=== PATIENT | male | born 1950 | race Caucasian/White ===

== ENCOUNTER → 2016-03-01 | Outpatient (REF) | payer BC ==
[2016-03-01 13:21] LABS: MEAN CORPUSCULAR HEMOGLOBIN 32.4 pg (27.0-33.0); MEAN CORPUSCULAR HGB CONC 32.2 g/dl (32.0-36.5); MEAN CORPUSCULAR VOLUME 100.6 fl (80.0-96.0); RED CELL DISTRIBUTION WIDTH 12.5 % (11.5-14.5); WHITE BLOOD COUNT 6.8 K/mm3 (4.0-10.0)
[2016-03-01 14:07] LABS: ALBUMIN/GLOBULIN RATIO 1.14 (1.00-1.93); ALKALINE PHOSPHATASE 78 U/L (45-117); ALT/SGPT 49 U/L (12-78); ANION GAP 5 MEQ/L (8-16); AST/SGOT 30 U/L (15-37); BILIRUBIN,TOTAL 0.4 MG/DL (0.2-1.0); BLOOD UREA NITROGEN 23 MG/DL (7-18); CARBON DIOXIDE LEVEL 30 MEQ/L (21-32); CHLORIDE LEVEL 106 MEQ/L (98-107); CHOLESTEROL LEVEL 169 MG/DL (<200); CREATININE FOR GFR 0.91 MG/DL (0.70-1.30); GLOMERULAR FILTRATION RATE > 60.0 (>49); GLUCOSE, FASTING 95 MG/DL (80-110); SODIUM LEVEL 141 MEQ/L (136-145); TOTAL PROTEIN 7.5 GM/DL (6.4-8.2); TRIGLYCERIDES LEVEL 114 MG/DL (<150)
[2016-03-01 14:08] LABS: POTASSIUM SERUM 5.2 MEQ/L (3.5-5.1)
== END | disposition home or self-care (01) ==
LOC: M LABDRWAD 12:44
PROVIDERS: ATTEND Family Medicine
DX: C61 Malignant neoplasm of prostate (principal); I10 Essential (primary) hypertension

== ENCOUNTER → 2016-11-14 | Outpatient (CLI) | payer BC, MEDICARE ==
--- NOTE | 2016-11-14 11:39 | REP ---
REASON: Hemoptysis. COMPARISON: 10/29/2010 COMPARISON: No priors. FINDINGS: The superior mediastinal structures are midline. The cardiac silhouette is unremarkable in size, shape, and position. The diaphragmatic surfaces of the lungs are regular, and the costophrenic angles are clear. The pulmonary saucedo are clear. The imaged osseous structures are intact. IMPRESSION: There is no acute cardiopulmonary disease. There has been no change from the prior exam, however, since the patient is experiencing hemoptysis, contrast enhanced CT examination of the chest is recommended. Signed by Bean Gregory DO 11/14/2016 09:49 A
== END ==
LOC: M ADAMS 08:36
PROVIDERS: ATTEND Physician Assistant Medical
DX: J20.9 Acute bronchitis, unspecified (principal); R04.2 Hemoptysis

== ENCOUNTER → 2017-10-24 | Outpatient (REF) | payer BC ==
[2017-10-24 14:50] LABS: BASO % 0.7 % (0.0-1.0); EOS # 0.2 10^3/uL (0.0-0.50); EOS % 3.7 % (0.0-3.0); HEMATOCRIT 44.1 % (42.0-52.0); HEMOGLOBIN 15.3 g/dl (13.5-17.5); IMMATURE GRANULOCYTE % 0.2 % (0-3.0); LYMPH # 2.1 10^3/uL (1.5-4.5); LYMPH % 39.5 % (24.0-44.0); MEAN CORPUSCULAR HEMOGLOBIN 33.9 pg (27.0-33.0); MEAN CORPUSCULAR HGB CONC 34.7 g/dl (32.0-36.5); MEAN CORPUSCULAR VOLUME 97.8 fl (80.0-96.0); MONO # 0.7 10^3/uL (0.0-0.8); MONO % 12.9 % (0.0-5.0); NEUTROPHILS # 2.3 10^3/uL (1.8-7.7); PLATELET COUNT, AUTOMATED 185 10^3/uL (150-450); RED BLOOD COUNT 4.51 10^6/uL (4.30-6.10); RED CELL DISTRIBUTION WIDTH 12.1 % (11.5-14.5); WHITE BLOOD COUNT 5.4 10^3/uL (4.0-10.0)
[2017-10-24 15:26] LABS: ALBUMIN/GLOBULIN RATIO 1.33 (1.00-1.93); ALKALINE PHOSPHATASE 64 U/L (45-117); ALT/SGPT 42 U/L (12-78); ANION GAP 11 MEQ/L (8-16); AST/SGOT 33 U/L (7-37); BILIRUBIN,TOTAL 0.5 MG/DL (0.2-1.0); BLOOD UREA NITROGEN 21 MG/DL (7-18); CARBON DIOXIDE LEVEL 25 MEQ/L (21-32); CHLORIDE LEVEL 104 MEQ/L (98-107); CHOLESTEROL LEVEL 152 MG/DL (<200); CHOLESTEROL RISK RATIO 2.235 (<5); CREATININE FOR GFR 0.73 MG/DL (0.70-1.30); GLOMERULAR FILTRATION RATE > 60.0 (>49); GLUCOSE, FASTING 96 MG/DL (70-100); HDL CHOLESTEROL 68 MG/DL (>40); LDL CHOLESTEROL 72 MG/DL (<100); NON-HDL-C 84 MG/DL; POTASSIUM SERUM 4.2 MEQ/L (3.5-5.1); PROSTATIC SPECIFIC AG MONITOR 0.02 NG/ML (< 4.0); SODIUM LEVEL 140 MEQ/L (136-145); TRIGLYCERIDES LEVEL 59 MG/DL (<150)
== END ==
LOC: M LABDRWAD 12:28
DX: C61 Malignant neoplasm of prostate (principal); I10 Essential (primary) hypertension
CPT/HCPCS: 80053

== ENCOUNTER 2018-06-17 19:31 | Emergency (ER) | payer BC, MEDICARE ==
[~2018-06-17] VITALS: Ht 188 cm; Wt 98.3 kg
[2018-06-17] MEDS ORDERED: METAL LOCK LOOP XX ONE (19:59)
[2018-06-17] MEDS ORDERED: BUPR300T34 PO (20:07)
[2018-06-17] MEDS ORDERED: LISI40TA PO (20:07)
[2018-06-17] MEDS ORDERED: ZOCO80TA PO (20:07)
[2018-06-17] MEDS ORDERED: OMEP40CA2 PO (20:07)
[2018-06-17] MEDS ORDERED: ASPI81CH33 PO (20:07)
[2018-06-17] MEDS ORDERED: AUGM875T28 PO (20:07)
[2018-06-17] MEDS ORDERED: TOPR50TA PO (20:07)
[2018-06-17 20:12] LABS: BASO % 0.5 % (0.0-1.0); EOS # 0.1 10^3/uL (0.0-0.50); EOS % 1.6 % (0.0-3.0); HEMATOCRIT 46.4 % (42.0-52.0); HEMOGLOBIN 16.1 g/dl (13.5-17.5); LYMPH # 3.2 10^3/uL (1.5-4.5); LYMPH % 38.7 % (24.0-44.0); MEAN CORPUSCULAR HEMOGLOBIN 34.3 pg (27.0-33.0); MEAN CORPUSCULAR HGB CONC 34.7 g/dl (32.0-36.5); MEAN CORPUSCULAR VOLUME 98.9 fl (80.0-96.0); MONO % 12.4 % (0.0-5.0); NEUTROPHILS # 3.9 10^3/uL (1.8-7.7); NEUTROPHILS % 46.3 % (36.0-66.0); PLATELET COUNT, AUTOMATED 174 10^3/uL (150-450); RED BLOOD COUNT 4.69 10^6/uL (4.30-6.10); WHITE BLOOD COUNT 8.3 10^3/uL (4.0-10.0)
[2018-06-17 20:41] LABS: BLOOD UREA NITROGEN 23 MG/DL (7-18); CALCIUM LEVEL 8.6 MG/DL (8.8-10.2); CARBON DIOXIDE LEVEL 26 MEQ/L (21-32); CHLORIDE LEVEL 104 MEQ/L (98-107); CPK CREATINE PHOSPHOKINASE 128 U/L (39-308); CREATININE FOR GFR 0.96 MG/DL (0.70-1.30); GLOMERULAR FILTRATION RATE > 60.0 (>49); GLUCOSE, FASTING 99 MG/DL (70-100); MB/CK RELATIVE INDEX 3.36 (< OR =4); NT-PRO BNP 20 PG/ML (<125); SODIUM LEVEL 139 MEQ/L (136-145); TROPONIN I < 0.02 NG/ML (< 0.10)
[2018-06-17] MEDS ORDERED: ISOVUE-370 76% 100ML VIAL (Q9967) As Ordered ONE (20:43)
[2018-06-17] MEDS ORDERED: IBUPROFEN 800 MG TAB PO ONE (20:45)
--- NOTE | 2018-06-17 21:12 | REPVR ---
EXAM: CT Cervical Spine Without Contrast EXAM DATE/TIME: 06/17/2018 8:14 PM CLINICAL HISTORY: 68 years old, male; Injury or trauma; Fall; Initial encounter; Blunt trauma TECHNIQUE: Imaging protocol: Axial computed tomography images of the cervical spine without contrast. Coronal and sagittal reformatted images were created and reviewed. Radiation optimization: All CT scans at this facility use at least one of these dose optimization techniques: automated exposure control; mA and/or kV adjustment per patient size (includes targeted exams where dose is matched to clinical indication); or iterative reconstruction. COMPARISON: No relevant prior studies available. FINDINGS: Vertebrae: There is no fracture. There is minimal C3-C4 anterolisthesis and C5-C6 retrolisthesis. Alignment is otherwise normal. Discs/Spinal canal/Neural foramina: There is mild spondylosis and disc bulges. No central spinal stenosis. There is severe left foraminal stenosis. At C3-C4. Soft tissues: Unremarkable. Lungs: Lung apices are normal. IMPRESSION: No fracture. Electronically signed by: Ward Martino On 06/17/2018 21:11:55 PM
--- NOTE | 2018-06-17 21:13 | REPVR ---
EXAM: CT Head Without Contrast EXAM DATE/TIME: 06/17/2018 8:14 PM CLINICAL HISTORY: 68 years old, male; Injury or trauma; Fall; Initial encounter; Concussion / head injury; Consciousness not specified TECHNIQUE: Imaging protocol: Axial computed tomography images of the head/brain without contrast. Radiation optimization: All CT scans at this facility use at least one of these dose optimization techniques: automated exposure control; mA and/or kV adjustment per patient size (includes targeted exams where dose is matched to clinical indication); or iterative reconstruction. COMPARISON: No relevant prior studies available. FINDINGS: Brain: There is no evidence of infarct, cherry-white matter differentiation is preserved. There is no hemorrhage or extra-axial collection. There is no mass. Ventricles: There is no hydrocephalus. Bones/joints: Unremarkable. No acute fracture. Sinuses: Visualized sinuses are unremarkable. No acute sinusitis. Mastoid air cells: Visualized mastoid air cells are unremarkable. No mastoid effusion. Soft tissues: Unremarkable. IMPRESSION: No intracranial injury or lesion. Electronically signed by: Ward Martino On 06/17/2018 21:13:13 PM
--- NOTE | 2018-06-17 21:18 | REPVR ---
EXAM: CT Angiography Chest With Contrast EXAM DATE/TIME: 06/17/2018 8:47 PM CLINICAL HISTORY: 68 years old, male; Signs and symptoms; Cough; Additional info: Syncope, cough TECHNIQUE: Imaging protocol: Axial computed tomographic angiography images of the chest with intravenous contrast using CT angiography protocol. Coronal and sagittal reformatted images were created and reviewed. 3D rendering: MIP reconstructed images were created and reviewed. Radiation optimization: All CT scans at this facility use at least one of these dose optimization techniques: automated exposure control; mA and/or kV adjustment per patient size (includes targeted exams where dose is matched to clinical indication); or iterative reconstruction. Contrast material: ISOVUE 370; Contrast volume: 75 ml; Contrast route: IV; COMPARISON: CR PORTABLE CHEST X-RAY 06/17/2018 8:07 PM FINDINGS: Pulmonary arteries: No pulmonary emboli. Aorta: No evidence of thoracic aortic aneurysm, dissection or vascular injury. Lungs: Normal. No consolidation. No masses. Pleural space: Normal. No pneumothorax. No pleural effusion. Heart: There are coronary artery calcifications. Lymph nodes: Unremarkable. No enlarged lymph nodes. Bones/joints: Unremarkable. No acute fracture. Soft tissues: Unremarkable. IMPRESSION: No acute findings. Electronically signed by: Ward Martino On 06/17/2018 21:18:13 PM
[2018-06-17] MEDS ORDERED: IBUP-359 PO (21:28)
[2018-06-17 21:33] VITALS: BP 127/64
--- NOTE | 2018-06-18 07:56 | ECGEPIP ---
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
--- NOTE | 2018-06-18 10:53 | REP ---
CHEST X-RAY: SINGLE AP VIEW. HISTORY: Chest pain. COMPARISON STUDY: November 14, 2016 FINDINGS: EKG monitoring electrodes overlie the chest. The lungs are well inflated and clear. The pleural angles are sharp. There are granulomatous lymph node calcifications in the AP window region of the mediastinum, unchanged. No mass or adenopathy is observed. Pulmonary vasculature is not increased. No significant bony abnormality. IMPRESSION: No active disease. Electronically Signed by Malvin Butterfield MD 06/18/2018 11:11 A
--- NOTE | 2018-06-18 10:54 | REP ---
RIGHT SHOULDER: THREE VIEWS. HISTORY: Right shoulder pain after a fall. FINDINGS: Three views of the right shoulder demonstrate normal alignment of the glenohumeral and acromioclavicular joints. There is glenohumeral and acromioclavicular joint osteoarthritic spurring. A bone island is seen in the proximal humerus and another in the distal clavicle. No humeral, scapular, or clavicular fracture is appreciated. IMPRESSION: Osteoarthritic changes. No fracture noted. Electronically Signed by Malvin Butterfield MD 06/18/2018 11:11 A
--- NOTE | 2018-06-18 10:55 | REP ---
RIGHT HUMERUS: TWO VIEWS. HISTORY: Right shoulder pain after a fall. FINDINGS: Two views of the glenohumeral and elbow joint, osteoarthritic spurring. AC joint spurring is seen. There is a small subcortical cyst in the humeral head along with a bone island. There is no evidence of fracture or subluxation. IMPRESSION: No traumatic abnormality noted. Osteoarthritic changes. Electronically Signed by Malvin Butterfield MD 06/18/2018 11:11 A
== END 2018-06-17 22:08 | disposition home or self-care (01) ==
LOC: M ED 19:31
DX: S40.011A Contusion of right shoulder, initial encounter (principal); F10.120 Alcohol abuse with intoxication, uncomplicated; R06.02 Shortness of breath; W19.XXXA Unspecified fall, initial encounter; Y92.89 Other specified places as the place of occurrence of the external cause; F17.210 Nicotine dependence, cigarettes, uncomplicated; Z79.899 Other long term (current) drug therapy; Z79.82 Long term (current) use of aspirin; Z79.2 Long term (current) use of antibiotics
CPT/HCPCS: 70450; 71045; 71275; 72125; 73030; 73060; 80048; 82550; 82553; 83880; 84484; 85025; 85379; 93005; 93041; 94760; 99285; G0480; Q9967

== ENCOUNTER → 2019-03-09 | Outpatient (REF) | payer MEDICARE ==
[~2019-03-09] MED LIST: ASPI81CH33 PO; AUGM875T28 PO; BUPR300T92 PO; IBUP-359 PO; LISI40TA PO; OMEP40CA97 PO; TOPR50TA PO; ZOCO80TA PO
[2019-03-09 13:23] LABS: HEMATOCRIT 50.2 % (42.0-52.0); HEMOGLOBIN 16.7 g/dl (13.5-17.5); MEAN CORPUSCULAR HEMOGLOBIN 33.5 pg (27.0-33.0); MEAN CORPUSCULAR HGB CONC 33.3 g/dl (32.0-36.5); MEAN CORPUSCULAR VOLUME 100.6 fl (80.0-96.0); PLATELET COUNT, AUTOMATED 211 10^3/uL (150-450); RED BLOOD COUNT 4.99 10^6/uL (4.30-6.10); WHITE BLOOD COUNT 9.3 10^3/uL (4.0-10.0)
[2019-03-09 13:58] LABS: ALBUMIN 3.8 GM/DL (3.2-5.2); ALT/SGPT 31 U/L (12-78); BILIRUBIN,TOTAL 0.5 MG/DL (0.2-1.0); BLOOD UREA NITROGEN 23 MG/DL (7-18); CARBON DIOXIDE LEVEL 27 MEQ/L (21-32); CHLORIDE LEVEL 107 MEQ/L (98-107); CHOLESTEROL LEVEL 173 MG/DL (<200); CHOLESTEROL RISK RATIO 3.604 (<5); CREATININE FOR GFR 0.88 MG/DL (0.70-1.30); GLOMERULAR FILTRATION RATE > 60.0 (>49); GLUCOSE, FASTING 102 MG/DL (70-100); HDL CHOLESTEROL 48 MG/DL (>40); LDL CHOLESTEROL 96 MG/DL (<100); NON-HDL-C 125 MG/DL; POTASSIUM SERUM 4.3 MEQ/L (3.5-5.1); PROSTATIC SPECIFIC AG MONITOR 0.03 NG/ML (< 4.00); SODIUM LEVEL 141 MEQ/L (136-145); TRIGLYCERIDES LEVEL 145 MG/DL (<150)
== END ==
LOC: M LABDRWAD 13:10
PROVIDERS: ATTEND Family Medicine
DX: C61 Malignant neoplasm of prostate (principal); I10 Essential (primary) hypertension

== ENCOUNTER → 2020-03-18 | Outpatient (REF) | payer MEDICARE ==
[~2020-03-18] MED LIST changes: -LISI40TA PO; +LISI40TA4 PO
[2020-03-18 14:16] LABS: ALBUMIN 3.9 GM/DL (3.2-5.2); ALT/SGPT 44 U/L (12-78); BILIRUBIN,TOTAL 0.8 MG/DL (0.2-1.0); BLOOD UREA NITROGEN 20 MG/DL (7-18); CARBON DIOXIDE LEVEL 27 MEQ/L (21-32); CHLORIDE LEVEL 104 MEQ/L (98-107); CHOLESTEROL LEVEL 181 MG/DL (<200); GLOMERULAR FILTRATION RATE > 60.0 (>42); GLUCOSE, FASTING 97 MG/DL (70-100); HDL CHOLESTEROL 52 MG/DL (>40); LDL CHOLESTEROL 101 MG/DL (<100); NON-HDL-C 129 MG/DL; POTASSIUM SERUM 4.9 MEQ/L (3.5-5.1); PROSTATIC SPECIFIC AG MONITOR 0.02 NG/ML (< 4.00); SODIUM LEVEL 140 MEQ/L (136-145); TOTAL PROTEIN 7.2 GM/DL (6.4-8.2); TRIGLYCERIDES LEVEL 140 MG/DL (<150)
[2020-03-18 15:16] LABS: HEMATOCRIT 47.3 % (42.0-52.0); HEMOGLOBIN 16.1 g/dl (13.5-17.5); MEAN CORPUSCULAR HEMOGLOBIN 33.8 pg (27.0-33.0); MEAN CORPUSCULAR VOLUME 99.4 fl (80.0-96.0); PLATELET COUNT, AUTOMATED 179 10^3/uL (150-450); RED BLOOD COUNT 4.76 10^6/uL (4.30-6.10); WHITE BLOOD COUNT 6.6 10^3/uL (4.0-10.0)
== END ==
LOC: M LABDRWAD 12:21
PROVIDERS: ATTEND Family Medicine
DX: C61 Malignant neoplasm of prostate (principal); I10 Essential (primary) hypertension

== ENCOUNTER 2020-07-08 09:12 | Emergency (ER) | payer MEDICARE ==
[~2020-07-08] VITALS: Ht 188 cm; Wt 105.8 kg
--- NOTE | 2020-07-08 10:07 | REP ---
INDICATION: fall , swelling, dried blood anterior scalp COMPARISON: 06/17/2018 TECHNIQUE: Axial noncontrast images from the skull base to the thoracic inlet with coronal reformations. This CT examination was performed using the following dose reduction techniques: Automated exposure control, adjustment of mA and/or kv according to the patient's size, and use of iterative reconstruction technique. FINDINGS: Atrophy with periventricular leukomalacia and microvascular ischemic changes are appreciated. The ventricles and sulci are symmetric. Perez-white differentiation is maintained. There is no evidence for acute intracranial hemorrhage, mass/mass effect, pathology or infarction. No extra-axial fluid collection. Calvarium is intact. Paranasal sinuses and mastoid air cells are clear. IMPRESSION: Atrophy and microvascular ischemic changes. No acute intracranial hemorrhage, infarction, or mass/mass effect. <Electronically signed by Tom Cabrera > 07/08/20 [id number]
--- NOTE | 2020-07-08 10:12 | REP ---
INDICATION: fall , vertebral tenderness, swenson ROM COMPARISON: None. TECHNIQUE: Axial noncontrast images from the skull base to the thoracic inlet with coronal and sagittal re-formations This CT examination was performed using the following dose reduction techniques: Automated exposure control, adjustment of mA and/or kv according to the patient's size, and use of iterative reconstruction technique. FINDINGS: There is a nondisplaced type 2 dens fracture. Straightening of normal lordosis, osteopenia, and moderate multilevel degenerative changes noted throughout the remainder of the cervical spine. IMPRESSION: Nondisplaced type 2 dens fracture. Findings require immediate attention and may represent unstable fracture. <Electronically signed by Tom Cabrera > 07/08/20 [id number]
[2020-07-08] MEDS ORDERED: lisinopriL 40 MG TAB PO ONE (10:15)
[2020-07-08] MEDS ORDERED: METOPROLOL SUCC (TopROL XL) 50MG **XL** TAB PO ONE (10:15)
[2020-07-08 10:25] VITALS: BP 224/100
[2020-07-08] MEDS ORDERED: NORCO, ANEXSIA 5/325MG TABLET (HYDROcodone/ACETAMINOPHEN) PO ONE (11:35)
[2020-07-08] MEDS ORDERED: MORPHINE 4 MG/ML 1ML VIAL/SYRINGE (J2270) IM ONE (12:10)
[2020-07-08 12:30] VITALS: BP 208/98
== END 2020-07-09 01:00 | disposition short-term general hospital (02) ==
LOC: M ED 09:12
DX: S12.112A Nondisplaced Type II dens fracture, initial encounter for closed fracture (principal); S00.01XA Abrasion of scalp, initial encounter; W01.198A Fall on same level from slipping, tripping and stumbling with subsequent striking against other object, initial encounter; Y92.098 Other place in other non-institutional residence as the place of occurrence of the external cause; Y93.89 Activity, other specified; Y99.8 Other external cause status; I10 Essential (primary) hypertension; E78.5 Hyperlipidemia, unspecified; K21.9 Gastro-esophageal reflux disease without esophagitis; J45.909 Unspecified asthma, uncomplicated; I25.10 Atherosclerotic heart disease of native coronary artery without angina pectoris; Z85.46 Personal history of malignant neoplasm of prostate; Z95.5 Presence of coronary angioplasty implant and graft; Z90.79 Acquired absence of other genital organ(s); Z79.899 Other long term (current) drug therapy; Z79.82 Long term (current) use of aspirin
CPT/HCPCS: 70450; 72125; 96372; 99284; J2270

== ENCOUNTER 2020-07-22 10:22 | Emergency (ER) | payer MEDICARE ==
[~2020-07-22] VITALS: Ht 188 cm; Wt 107.2 kg
[2020-07-22] MEDS ORDERED: FURO20TA2 (10:37)
[2020-07-22] MEDS ORDERED: ATEN50TA2 (10:37)
--- NOTE | 2020-07-22 11:24 | REP ---
INDICATION: DYSPNEA/COUGH. COMPARISON: 06/17/2018 FINDINGS: The technique utilized in obtaining the radiograph has magnified the cardiac silhouette and accentuated the interstitial markings. The superior mediastinal structures are midline. The cardiac silhouette is unremarkable in size, shape, and position. The diaphragmatic surfaces of the lungs are regular, and the costophrenic angles are clear. The pulmonary saucedo are clear. The imaged osseous structures are intact. IMPRESSION: There is no acute cardiopulmonary disease. <Electronically signed by Bean Gregory > 07/22/20 [id number]
[2020-07-22 11:42] LABS: BASO % 0.5 % (0.0-1.0); EOS # 0.1 10^3/uL (0.0-0.5); EOS % 1.6 % (0.0-3.0); HEMATOCRIT 43.5 % (42.0-52.0); HEMOGLOBIN 14.9 g/dl (13.5-17.5); LYMPH # 1.7 10^3/uL (1.5-5.0); LYMPH % 27.3 % (24.0-44.0); MEAN CORPUSCULAR HEMOGLOBIN 34.4 pg (27.0-33.0); MEAN CORPUSCULAR HGB CONC 34.3 g/dl (32.0-36.5); MEAN CORPUSCULAR VOLUME 100.5 fl (80.0-96.0); MONO # 0.8 10^3/uL (0.0-0.8); MONO % 12.2 % (2.0-8.0); NEUTROPHILS # 3.6 10^3/uL (1.5-8.5); NEUTROPHILS % 58.1 % (36.0-66.0); PLATELET COUNT, AUTOMATED 188 10^3/uL (150-450); RED BLOOD COUNT 4.33 10^6/uL (4.30-6.10); WHITE BLOOD COUNT 6.2 10^3/uL (4.0-10.0)
[2020-07-22 12:07] LABS: CK-MB VALUE MASS 3.9 NG/ML (<3.6); CPK CREATINE PHOSPHOKINASE 205 U/L (39-308); TROPONIN I < 0.02 NG/ML (< 0.10)
[2020-07-22 12:08] LABS: ALBUMIN 3.6 GM/DL (3.2-5.2); ALT/SGPT 36 U/L (12-78); BILIRUBIN,DIRECT 0.1 MG/DL (0.0-0.2); BILIRUBIN,TOTAL 0.3 MG/DL (0.2-1.0); BLOOD UREA NITROGEN 18 MG/DL (7-18); CALCIUM LEVEL 8.9 MG/DL (8.8-10.2); CARBON DIOXIDE LEVEL 31 MEQ/L (21-32); CHLORIDE LEVEL 105 MEQ/L (98-107); CREATININE FOR GFR 0.76 MG/DL (0.70-1.30); GLOMERULAR FILTRATION RATE > 60.0 (>42); GLUCOSE, FASTING 99 MG/DL (70-100); NT-PRO BNP 41 PG/ML (<125); POTASSIUM SERUM 4.6 MEQ/L (3.5-5.1); SODIUM LEVEL 138 MEQ/L (136-145); TOTAL PROTEIN 6.8 GM/DL (6.4-8.2)
[2020-07-22 13:08] LABS: FREE T4 0.93 NG/DL (0.76-1.46); THYROID STIMULATING HORMONE 0.582 uIU/ML (0.358-3.740)
--- NOTE | 2020-07-22 13:12 | REP ---
INDICATION: edema r/o DVT COMPARISON: None. TECHNIQUE: Real time compression and duplex Doppler interrogation of the bilateral lower extremity deep venous system is performed. Compression ultrasound is performed of the bilateral peroneal and posterior tibial veins. FINDINGS: Bilaterally, the common femoral, superficial femoral and popliteal veins are fully compressible with transducer pressure and demonstrate normal spontaneous and phasic flow, without evidence of deep venous thrombosis. No thrombus is seen in the bilateral visualized portions of the peroneal and posterior tibial veins. IMPRESSION: No evidence of deep venous thrombosis of the bilateral lower extremity femoral popliteal venous system. <Electronically signed by Alexx Perez > 07/22/20 [id number]
[2020-07-22 13:41] VITALS: O2SAT 97
[2020-07-22 13:43] VITALS: BP 172/88
--- NOTE | 2020-07-22 21:05 | ECGEPIP ---
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
== END 2020-07-22 14:08 | disposition home or self-care (01) ==
LOC: M ED 10:22
DX: R60.0 Localized edema (principal); I10 Essential (primary) hypertension; J45.909 Unspecified asthma, uncomplicated; K21.9 Gastro-esophageal reflux disease without esophagitis; S12.001D Unspecified nondisplaced fracture of first cervical vertebra, subsequent encounter for fracture with routine healing; S12.101D Unspecified nondisplaced fracture of second cervical vertebra, subsequent encounter for fracture with routine healing; X58.XXXD Exposure to other specified factors, subsequent encounter; Y92.89 Other specified places as the place of occurrence of the external cause; Z85.46 Personal history of malignant neoplasm of prostate; Z90.79 Acquired absence of other genital organ(s); Z95.5 Presence of coronary angioplasty implant and graft; Z79.899 Other long term (current) drug therapy; Z79.82 Long term (current) use of aspirin

== ENCOUNTER → 2020-08-06 | Outpatient (REF) | payer MEDICARE ==
[~2020-08-06] MED LIST changes: +ATEN50TA2; +FURO20TA2; +OMEP40CA4 PO; -OMEP40CA97 PO
[2020-08-06 13:57] LABS: BLOOD UREA NITROGEN 26 MG/DL (7-18); CALCIUM LEVEL 9.5 MG/DL (8.8-10.2); CARBON DIOXIDE LEVEL 30 MEQ/L (21-32); CHLORIDE LEVEL 102 MEQ/L (98-107); CREATININE FOR GFR 1.09 MG/DL (0.70-1.30); GLOMERULAR FILTRATION RATE > 60.0 (>42); GLUCOSE, FASTING 97 MG/DL (70-100); POTASSIUM SERUM 4.5 MEQ/L (3.5-5.1); SODIUM LEVEL 139 MEQ/L (136-145)
== END ==
LOC: M LABDRWAD 12:37
PROVIDERS: ATTEND Family Medicine
DX: R60.9 Edema, unspecified (principal)

== ENCOUNTER → 2020-08-25 | Outpatient (CLI) | payer MEDICARE ==
--- NOTE | 2020-08-25 13:35 | REPVR ---
PROCEDURE INFORMATION: Exam: CT Cervical Spine Without Contrast Exam date and time: 08/25/2020 1:04 PM Age: 70 years old Clinical indication: Condition or disease; Other: Nondisplaced type ii dens fracture; Additional info: Nondisplaced type ii dens fracture, subs for FX w TECHNIQUE: Imaging protocol: Computed tomography images of the cervical spine without contrast. Radiation optimization: All CT scans at this facility use at least one of these dose optimization techniques: automated exposure control; mA and/or kV adjustment per patient size (includes targeted exams where dose is matched to clinical indication); or iterative reconstruction. COMPARISON: CT Spine,cervical w/o contrast 07/08/2020 9:52 AM FINDINGS: Bones/joints: There is stable nondisplaced type 2 odontoid fracture. Fracture line remains unchanged and evident and there is no significant visible callus formation. Discs/Spinal canal/Neural foramina: Again seen are degenerative changes with multilevel neural foraminal narrowing greatest left C3-C4 where severe. There is stable grade 1 anterolisthesis of C3 on C4 and C4 on C5 and retrolisthesis of C5 on C6. Lungs: Lung apices are unremarkable for acute finding. Soft tissues: Unremarkable. IMPRESSION: Unchanged type 2 odontoid fracture with fracture line still evident. Electronically signed by: Dee Dee Cherry On 08/25/2020 13:35:14 PM
== END ==
LOC: M RAD 12:56
PROVIDERS: ATTEND Nurse Practitioner Family
DX: S12.112D Nondisplaced Type II dens fracture, subsequent encounter for fracture with routine healing (principal); W18.30XD Fall on same level, unspecified, subsequent encounter; Y92.009 Unspecified place in unspecified non-institutional (private) residence as the place of occurrence of the external cause

== ENCOUNTER → 2021-05-14 | Outpatient (REF) | payer MEDICARE ==
[2021-05-14 12:49] LABS: HEMATOCRIT 45.7 % (42.0-52.0); HEMOGLOBIN 16.4 g/dl (13.5-17.5); MEAN CORPUSCULAR HGB CONC 35.9 g/dl (32.0-36.5); MEAN CORPUSCULAR VOLUME 100.4 fl (80.0-96.0); PLATELET COUNT, AUTOMATED 160 10^3/uL (150-450); RED BLOOD COUNT 4.55 10^6/uL (4.30-6.10); WHITE BLOOD COUNT 6.7 10^3/uL (4.0-10.0)
[2021-05-14 13:27] LABS: ALBUMIN 3.9 GM/DL (3.2-5.2); ALT/SGPT 51 U/L (12-78); BILIRUBIN,TOTAL 0.6 MG/DL (0.2-1.0); BLOOD UREA NITROGEN 21 MG/DL (7-18); CALCIUM LEVEL 9.5 MG/DL (8.8-10.2); CARBON DIOXIDE LEVEL 31 MEQ/L (21-32); CHLORIDE LEVEL 106 MEQ/L (98-107); CHOLESTEROL LEVEL 177 MG/DL (<200); CHOLESTEROL RISK RATIO 4.022 (<5); CREATININE FOR GFR 0.95 MG/DL (0.70-1.30); GLOMERULAR FILTRATION RATE > 60.0 (>42); GLUCOSE, FASTING 99 MG/DL (70-100); HDL CHOLESTEROL 44 MG/DL (>40); LDL CHOLESTEROL 66 MG/DL (<100); NON-HDL-C 133 MG/DL; POTASSIUM SERUM 4.1 MEQ/L (3.5-5.1); PROSTATIC SPECIFIC AG MONITOR 0.01 NG/ML (< 4.00); SODIUM LEVEL 140 MEQ/L (136-145); TOTAL PROTEIN 7.3 GM/DL (6.4-8.2); TRIGLYCERIDES LEVEL 337 MG/DL (<150)
== END ==
LOC: M LABDRWAD 11:37
PROVIDERS: ATTEND Family Medicine
DX: C61 Malignant neoplasm of prostate (principal); I10 Essential (primary) hypertension

== ENCOUNTER → 2023-01-07 | Outpatient (REF) | payer MEDICARE ==
[2023-01-07 14:43] LABS: BASO % 0.5 % (0.0-1.0); HEMATOCRIT 45.7 % (42.0-52.0); HEMOGLOBIN 15.6 g/dl (13.5-17.5); LYMPH # 1.6 10^3/uL (1.5-5.0); LYMPH % 29.2 % (24.0-44.0); MEAN CORPUSCULAR HEMOGLOBIN 34.1 pg (27.0-33.0); MEAN CORPUSCULAR HGB CONC 34.1 g/dl (32.0-36.5); MEAN CORPUSCULAR VOLUME 99.8 fl (80.0-96.0); MONO # 1.1 10^3/uL (0.0-0.8); MONO % 19.2 % (2.0-8.0); NEUTROPHILS # 2.8 10^3/uL (1.5-8.5); NEUTROPHILS % 50.9 % (36.0-66.0); PLATELET COUNT, AUTOMATED 127 10^3/uL (150-450); RED BLOOD COUNT 4.58 10^6/uL (4.30-6.10); WHITE BLOOD COUNT 5.6 10^3/uL (4.0-10.0)
[2023-01-07 15:01] LABS: ALBUMIN 3.5 G/DL (3.2-5.2); ALKALINE PHOSPHATASE 97 U/L (46-116); ALT/SGPT 28 U/L (7.0-40); AST/SGOT 26 U/L (<34); BILIRUBIN,TOTAL 0.3 MG/DL (0.3-1.2); BLOOD UREA NITROGEN 15 MG/DL (9-23); CALCIUM LEVEL 9.4 MG/DL (8.3-10.6); CARBON DIOXIDE LEVEL 23 MMOL/L (20-31); CHLORIDE LEVEL 105 MMOL/L (98-107); CHOLESTEROL LEVEL 149 MG/DL (<200); CHOLESTEROL RISK RATIO 3.31 (<5); CREATININE FOR GFR 0.83 MG/DL (0.70-1.30); GLOMERULAR FILTRATION RATE > 60.0 (>42); GLUCOSE, FASTING 86 MG/DL (74-106); HDL CHOLESTEROL 44.9 MG/DL (>40); LDL CHOLESTEROL 81.1 MG/DL (<100); NON-HDL-C 104.1 MG/DL; POTASSIUM SERUM 4.7 MMOL/L (3.5-5.1); SODIUM LEVEL 139 MMOL/L (136-145); TOTAL PROTEIN 7.1 G/DL (5.7-8.2); TRIGLYCERIDES LEVEL 115 MG/DL (<150)
== END ==
LOC: M LABDRWAD 12:24
PROVIDERS: ATTEND Family Medicine
DX: C61 Malignant neoplasm of prostate (principal); I10 Essential (primary) hypertension

== ENCOUNTER → 2023-03-07 | Outpatient (CLI) | payer MEDICARE | LOC: M PLAIMG 11:47 | PROVIDERS: ATTEND Otolaryngology | DX: J32.9 Chronic sinusitis, unspecified (principal) ==

== ENCOUNTER → 2023-03-17 | Outpatient (CLI) | payer MEDICARE ==
[~2023-03-17] MED LIST changes: +SIMV-254 PO; +THERTAB52 PO
[2023-03-17 09:24] LABS: BASO % 0.3 % (0.0-1.0); EOS % 0.5 % (0.0-3.0); HEMATOCRIT 43.8 % (42.0-52.0); HEMOGLOBIN 15.2 g/dl (13.5-17.5); LYMPH # 2.1 10^3/uL (1.5-5.0); LYMPH % 36.4 % (24.0-44.0); MEAN CORPUSCULAR HEMOGLOBIN 34.4 pg (27.0-33.0); MEAN CORPUSCULAR HGB CONC 34.7 g/dl (32.0-36.5); MEAN CORPUSCULAR VOLUME 99.1 fl (80.0-96.0); MONO # 0.8 10^3/uL (0.0-0.8); MONO % 13.3 % (2.0-8.0); NEUTROPHILS # 2.9 10^3/uL (1.5-8.5); NEUTROPHILS % 49.3 % (36.0-66.0); PLATELET COUNT, AUTOMATED 175 10^3/uL (150-450); RED BLOOD COUNT 4.42 10^6/uL (4.30-6.10); WHITE BLOOD COUNT 5.9 10^3/uL (4.0-10.0)
[2023-03-17 09:44] LABS: ALBUMIN 3.5 G/DL (3.2-5.2); ALKALINE PHOSPHATASE 72 U/L (46-116); ALT/SGPT 20 U/L (7.0-40); AST/SGOT 20 U/L (<34); BILIRUBIN,TOTAL 0.4 MG/DL (0.3-1.2); BLOOD UREA NITROGEN 14 MG/DL (9-23); CALCIUM LEVEL 9.2 MG/DL (8.3-10.6); CARBON DIOXIDE LEVEL 29 MMOL/L (20-31); CHLORIDE LEVEL 105 MMOL/L (98-107); CREATININE FOR GFR 0.85 MG/DL (0.70-1.30); GLOMERULAR FILTRATION RATE > 60.0 (>42); GLUCOSE, FASTING 106 MG/DL (74-106); POTASSIUM SERUM 4.4 MMOL/L (3.5-5.1); SODIUM LEVEL 138 MMOL/L (136-145)
== END ==
LOC: M EKG 08:27
PROVIDERS: ATTEND Family Medicine
DX: Z01.818 Encounter for other preprocedural examination (principal)

== ENCOUNTER 2023-03-21 12:16 | Day surgery (SDC) | payer MEDICARE ==
[~2023-03-21] VITALS: Ht 182.9 cm; Wt 92.5 kg
[~2023-03-21 12:16] MED LIST changes: -ATEN50TA2; +ATEN50TA2 PO
[2023-03-21] MEDS ORDERED: TORS20TA2 PO (12:39)
[2023-03-21] MEDS ORDERED: propofoL 200 MG/20 ML VIAL As Ordered ONE (13:50)
[2023-03-21] MEDS ORDERED: dexmedeTOMIDine (4MCG/ML)200MCG/50ML BTL (PRECEDEX) As Ordered ONE (13:50)
[2023-03-21] MEDS ORDERED: LABETALOL 100MG/20ML VIAL As Ordered ONE (13:50)
[2023-03-21] MEDS ORDERED: SUGAMMADEX SODIUM 500 MG/5 ML VIAL (BRIDION) As Ordered ONE (13:50)
[2023-03-21] MEDS ORDERED: LIDOCAINE 2% 100MG/5ML SDV (FOR ANES.) As Ordered ONE (13:50)
[2023-03-21] MEDS ORDERED: METOCLOPRAMIDE INJ 10MG/2ML VIAL As Ordered ONE (13:50)
[2023-03-21] MEDS ORDERED: ROCURONIUM BROMIDE 50MG/5ML VIAL As Ordered ONE (13:50)
[2023-03-21] MEDS ORDERED: fentaNYL 100 MCG/2 ML INJECTION As Ordered ONE (13:50)
[2023-03-21] MEDS ORDERED: MIDAZOLAM INJ 2MG/2ML VIAL As Ordered ONE (13:50)
[2023-03-21] MEDS ORDERED: ONDANSETRON 4MG 2ML VIAL As Ordered ONE (13:50)
[2023-03-21] MEDS ORDERED: ACETAMINOPHEN 1000MG 100ML IV BAG As Ordered ONE (13:51)
[2023-03-21] MEDS: OXYMETAZOLINE 0.05% NASAL SPRAY (AFRIN) As Ordered ONE (14:03)
[2023-03-21] MEDS ORDERED: DESFLURANE 240 ML INHALANT As Ordered ONE (14:11)
[2023-03-21] MEDS ORDERED: ONDANSETRON 4MG 2ML VIAL IV PRN (14:25)
[2023-03-21] MEDS ORDERED: MORPHINE 2 MG/ML 1ML VIAL IV PRN (14:25)
[2023-03-21] MEDS ORDERED: fentaNYL 100 MCG/2 ML INJECTION IV PRN (14:25)
[2023-03-21] MEDS ORDERED: oxyCODONE 5MG TAB PO PRN (14:25)
[2023-03-21] MEDS ORDERED: LR 1,000 ML IV SCH (14:45)
[2023-03-21] MEDS ORDERED: HYDROcodone/APAP LIQUID 7.5-325MG 15ML UDC (LORTAB ELIXIR) PO PRN (14:50)
[2023-03-21 15:00] VITALS: BP 178/84; TEMP 97.2; O2SAT 95
== END 2023-03-21 15:25 | disposition home or self-care (01) ==
LOC: M SDC 12:16
PROVIDERS: ATTEND Otolaryngology
DX: C32.9 Malignant neoplasm of larynx, unspecified (principal); I25.10 Atherosclerotic heart disease of native coronary artery without angina pectoris; Z95.5 Presence of coronary angioplasty implant and graft; F17.210 Nicotine dependence, cigarettes, uncomplicated; Z79.899 Other long term (current) drug therapy
CPT/HCPCS: 31536; 88305; 93005; J0131; J1100; J1920; J2250; J2405; J2765; J3010

== ENCOUNTER → 2023-04-08 | Outpatient (CLI) | payer MEDICARE ==
[~2023-04-08] MED LIST changes: +TORS20TA2 PO
== END ==
LOC: M ONCR 13:55
PROVIDERS: ATTEND General Practice
DX: C32.0 Malignant neoplasm of glottis (principal); F17.210 Nicotine dependence, cigarettes, uncomplicated; Z71.2 Person consulting for explanation of examination or test findings; Z79.82 Long term (current) use of aspirin; Z79.899 Other long term (current) drug therapy; Z80.8 Family history of malignant neoplasm of other organs or systems; Z85.46 Personal history of malignant neoplasm of prostate; Z90.79 Acquired absence of other genital organ(s)

== ENCOUNTER → 2023-04-14 | Outpatient (CLI) | payer MEDICARE ==
[~2023-04-14] MED LIST changes: +ISOVUE-370 76% 100ML VIAL As Ordered ONE
== END ==
LOC: M RAD 15:55
PROVIDERS: ATTEND General Practice
DX: C32.0 Malignant neoplasm of glottis (principal)
CPT/HCPCS: 70491; Q9967

== ENCOUNTER 2023-05-06 08:41 | Outpatient (RCR) | payer MEDICARE ==
[~2023-05-06 08:41] MED LIST changes: -ISOVUE-370 76% 100ML VIAL As Ordered ONE
[2023-05-10] MEDS ORDERED: MAGICMW SSP (13:12)
== END 2023-05-08 ==
LOC: M ONCR 08:41
PROVIDERS: ATTEND General Practice
DX: Z51.0 Encounter for antineoplastic radiation therapy (principal); C32.0 Malignant neoplasm of glottis

== ENCOUNTER → 2023-06-07 | Outpatient (RCR) | payer MEDICARE ==
[~2023-06-07] MED LIST changes: +LIDO15SO8 PO; +MAGICMW SSP; +OXYC-517 PO
== END ==
LOC: M ONCR 05-09 08:36
PROVIDERS: ATTEND General Practice
DX: Z51.0 Encounter for antineoplastic radiation therapy (principal); C32.0 Malignant neoplasm of glottis

== ENCOUNTER → 2023-06-21 | Outpatient (CLI) | payer MEDICARE ==
[~2023-06-21] MED LIST changes: +BUPR-597 PO; -BUPR300T92 PO
== END ==
LOC: M ONCR 08:45
PROVIDERS: ATTEND General Practice
DX: C32.0 Malignant neoplasm of glottis (principal); Z92.3 Personal history of irradiation

== ENCOUNTER 2023-06-26 04:44 | Emergency (ER) | payer MEDICARE ==
[~2023-06-26] VITALS: Ht 182.9 cm; Wt 88.6 kg
[2023-06-26 05:37] LABS: BASO % 0.3 % (0.0-1.0); HEMOGLOBIN 12.6 g/dl (13.5-17.5); LYMPH # 0.9 10^3/uL (1.5-5.0); LYMPH % 12.6 % (24.0-44.0); MEAN CORPUSCULAR HEMOGLOBIN 35.4 pg (27.0-33.0); MEAN CORPUSCULAR VOLUME 98.3 fl (80.0-96.0); MONO # 1.1 10^3/uL (0.0-0.8); MONO % 15.5 % (2.0-8.0); NEUTROPHILS # 5.1 10^3/uL (1.5-8.5); NEUTROPHILS % 71.5 % (36.0-66.0); PLATELET COUNT, AUTOMATED 153 10^3/uL (150-450); RED BLOOD COUNT 3.56 10^6/uL (4.30-6.10); WHITE BLOOD COUNT 7.1 10^3/uL (4.0-10.0)
[2023-06-26 06:11] LABS: CK-MB VALUE MASS 1.6 NG/ML (<3.6)
[2023-06-26 06:13] LABS: ALBUMIN 2.8 G/DL (3.2-5.2); ALKALINE PHOSPHATASE 86 U/L (46-116); ALT/SGPT 17 U/L (7.0-40); AST/SGOT 19 U/L (<34); BILIRUBIN,TOTAL 0.7 MG/DL (0.3-1.2); BLOOD UREA NITROGEN 16 MG/DL (9-23); CALCIUM LEVEL 8.5 MG/DL (8.3-10.6); CARBON DIOXIDE LEVEL 22 MMOL/L (20-31); CHLORIDE LEVEL 101 MMOL/L (98-107); CPK CREATINE PHOSPHOKINASE 114 U/L (46-171); CREATININE FOR GFR 0.76 MG/DL (0.70-1.30); GLOMERULAR FILTRATION RATE > 60.0 (>42); GLUCOSE, FASTING 100 MG/DL (74-106); POTASSIUM SERUM 3.5 MMOL/L (3.5-5.1); SODIUM LEVEL 134 MMOL/L (136-145); TOTAL PROTEIN 6.3 G/DL (5.7-8.2)
[2023-06-26 07:22] LABS: CK-MB VALUE MASS 1.8 NG/ML (<3.6)
[2023-06-26 07:24] LABS: CPK CREATINE PHOSPHOKINASE 119 U/L (46-171); MB/CK RELATIVE INDEX 1.51 (< OR =4)
[2023-06-26] MEDS: NS 500 ML IV ONE (07:39)
[2023-06-26] MEDS ORDERED: ISOVUE-370 76% 100ML VIAL As Ordered ONE (07:45)
[2023-06-26] MEDS: DOXYCYCLINE HYCLATE 100MG TABLET PO ONE (08:56)
[2023-06-26] MEDS: cefTRIAXone SOD 1 GM in D5W MINI-BAG PLUS 50 ML IV ONE (08:56)
[2023-06-26] MEDS: IPRATROPIUM 0.5MG/ALBUTEROL 2.5MG INH SOL UD 3ML (DUONEB) NEB ONE (08:58)
[2023-06-26] MEDS ORDERED: DOXY-323 PO (08:58)
[2023-06-26] MEDS ORDERED: VENTAER INH (08:58)
[2023-06-26] MEDS ORDERED: CEFD1CAP9 PO (08:58)
[2023-06-26] MEDS ORDERED: TRAM50TA2 PO (08:58)
[2023-06-26] MEDS ORDERED: BENZ200C70 PO (08:58)
[2023-06-26] MEDS ORDERED: MUCI600T31 PO (08:58)
[2023-06-26 09:51] VITALS: BP 145/69; TEMP 98.3; O2SAT 97
== END 2023-06-26 10:05 | disposition home or self-care (01) ==
LOC: M ED 04:44
DX: J18.1 Lobar pneumonia, unspecified organism (principal); I25.119 Atherosclerotic heart disease of native coronary artery with unspecified angina pectoris; I10 Essential (primary) hypertension; J44.9 Chronic obstructive pulmonary disease, unspecified; K21.9 Gastro-esophageal reflux disease without esophagitis; F17.210 Nicotine dependence, cigarettes, uncomplicated; Z79.51 Long term (current) use of inhaled steroids; Z79.1 Long term (current) use of non-steroidal anti-inflammatories (NSAID); Z79.2 Long term (current) use of antibiotics; Z79.810 Long term (current) use of selective estrogen receptor modulators (SERMs); Z79.899 Other long term (current) drug therapy
CPT/HCPCS: 71045; 71275; 80053; 82550; 82553; 84484; 85025; 93005; 93041; 94640; 94760; 96361; 96365; 99284; J0696; Q9967

== ENCOUNTER → 2023-07-22 | Outpatient (CLI) | payer MEDICARE ==
[~2023-07-22] MED LIST changes: +BENZ200C70 PO; +CEFD1CAP9 PO; +DOXY-323 PO; +MUCI600T31 PO; +TRAM50TA2 PO; +VENTAER INH
== END ==
LOC: M RAD 10:24
PROVIDERS: ATTEND Family Medicine
DX: J18.9 Pneumonia, unspecified organism (principal)

== ENCOUNTER → 2023-07-29 | Outpatient (CLI) | payer MEDICARE | LOC: M PLAIMG 09:34 | PROVIDERS: ATTEND Family Medicine | DX: J18.9 Pneumonia, unspecified organism (principal) ==

== ENCOUNTER → 2023-07-30 | Outpatient (CLI) | payer MEDICARE | LOC: M LAB 08:00 | PROVIDERS: ATTEND Family Medicine | DX: J18.9 Pneumonia, unspecified organism (principal) ==

== ENCOUNTER → 2023-07-31 | Outpatient (REF) | payer MEDICARE | LOC: M LAB REF 08:44 | PROVIDERS: ATTEND Family Medicine | DX: J18.9 Pneumonia, unspecified organism (principal) ==

== ENCOUNTER → 2023-09-06 | Outpatient (CLI) | payer MEDICARE ==
[~2023-09-06] MED LIST changes: +ACET500P3 PO; +ALBU2.5V10 NEB; +LEVO1TAB40 PO; +LISI20TA33 PO; +LORA-622 PO
== END ==
LOC: M ONCR 08:37
PROVIDERS: ATTEND General Practice
DX: C32.0 Malignant neoplasm of glottis (principal); F17.210 Nicotine dependence, cigarettes, uncomplicated; R05.9 Cough, unspecified; Z79.82 Long term (current) use of aspirin; Z79.899 Other long term (current) drug therapy; Z92.3 Personal history of irradiation

== ENCOUNTER → 2023-09-14 | Outpatient (REF) | payer MEDICARE ==
[~2023-09-14] MED LIST changes: -ACET500P3 PO; -ALBU2.5V10 NEB; -LISI20TA33 PO; -LORA-622 PO
== END ==
LOC: M LAB REF 12:46
PROVIDERS: ATTEND Internal Medicine Pulmonary Disease
DX: R91.8 Other nonspecific abnormal finding of lung field (principal)

== ENCOUNTER → 2023-09-15 | Outpatient (REF) | payer MEDICARE | LOC: M LAB REF 12:53 | PROVIDERS: ATTEND Internal Medicine Pulmonary Disease | DX: R91.8 Other nonspecific abnormal finding of lung field (principal) ==

== ENCOUNTER → 2023-09-17 | Outpatient (CLI) | payer MEDICARE | LOC: M LAB 08:25 | PROVIDERS: ATTEND Internal Medicine Pulmonary Disease | DX: Z53.9 Procedure and treatment not carried out, unspecified reason (principal) ==

== ENCOUNTER → 2023-09-20 | Outpatient (REF) | payer MEDICARE | LOC: M LAB REF 12:43 | PROVIDERS: ATTEND Internal Medicine Pulmonary Disease | DX: R91.8 Other nonspecific abnormal finding of lung field (principal) ==

== ENCOUNTER → 2023-10-02 | Outpatient (REF) | payer MEDICARE | LOC: M LAB REF 17:00 | PROVIDERS: ATTEND Internal Medicine Pulmonary Disease | DX: R91.8 Other nonspecific abnormal finding of lung field (principal) ==

== ENCOUNTER 2023-10-24 07:26 | Inpatient (IN) | payer MEDICARE ==
[~2023-10-24] VITALS: Ht 185.4 cm; Wt 74.8 kg
[2023-10-24] MEDS ORDERED: ACET500P3 PO (07:46)
[2023-10-24 11:35] LABS: BASO % 0.5 % (0.0-1.0); EOS % 0.2 % (0.0-3.0); HEMATOCRIT 41.7 % (42.0-52.0); HEMOGLOBIN 13.8 g/dl (13.5-17.5); LYMPH # 1.7 10^3/uL (1.5-5.0); LYMPH % 29.1 % (24.0-44.0); MEAN CORPUSCULAR HEMOGLOBIN 36.4 pg (27.0-33.0); MEAN CORPUSCULAR HGB CONC 33.1 g/dl (32.0-36.5); MONO # 0.7 10^3/uL (0.0-0.8); MONO % 12.1 % (2.0-8.0); NEUTROPHILS # 3.3 10^3/uL (1.5-8.5); NEUTROPHILS % 57.7 % (36.0-66.0); PLATELET COUNT, AUTOMATED 216 10^3/uL (150-450); RED BLOOD COUNT 3.79 10^6/uL (4.30-6.10); WHITE BLOOD COUNT 5.7 10^3/uL (4.0-10.0)
[2023-10-24 11:47] LABS: INR 1.02; PROTHROMBIN TIME 13.1 SECONDS (12.5-14.5)
[2023-10-24 11:56] LABS: BLOOD UREA NITROGEN 12 MG/DL (9-23); CALCIUM LEVEL 9.5 MG/DL (8.3-10.6); CARBON DIOXIDE LEVEL 25 MMOL/L (20-31); CHLORIDE LEVEL 110 MMOL/L (98-107); CREATININE FOR GFR 0.58 MG/DL (0.70-1.30); GLOMERULAR FILTRATION RATE > 60.0 (>42); GLUCOSE, FASTING 86 MG/DL (74-106); POTASSIUM SERUM 4.1 MMOL/L (3.5-5.1); SODIUM LEVEL 142 MMOL/L (136-145)
[2023-10-24] MEDS ORDERED: ALBUTEROL SULFATE 2.5MG/0.5ML INH NEB SOLN INH PRN (12:35)
[2023-10-24] MEDS: D5W/0.45% SODIUM CHLORIDE 1,000 ML IV SCH (13:21)
[2023-10-24] MEDS ORDERED: MED REC CURRENTLY UNOBTAINABLE XX SCH (14:30)
[2023-10-24 16:00] VITALS: BP 135/78; TEMP 97.9; O2SAT 95
[2023-10-24] MEDS ORDERED: LISI20TA33 PO (17:03)
[2023-10-24] MEDS ORDERED: LORA-622 PO (17:04)
[2023-10-24] MEDS ORDERED: ALBU2.5V10 NEB (17:04)
[2023-10-24] MEDS ORDERED: HOME MED LIST COMPLETE! XX SCH (17:05)
[2023-10-24] MEDS: MORPHINE 2 MG/ML 1ML VIAL IV PRN (18:15)
[2023-10-24] MEDS: ONDANSETRON 4MG 2ML VIAL IV PRN (18:15)
[2023-10-24 21:23] VITALS: BP 108/76; TEMP 98.2; O2SAT 96
[2023-10-24] MEDS: READI-CAT 2 NG ONE (22:00)
[2023-10-24] MEDS: CHLORASEPTIC SPRAY MT PRN (22:19)
[2023-10-25 04:00] VITALS: BP 119/67; TEMP 97.5; O2SAT 95
[2023-10-25 07:03] LABS: HEMATOCRIT 33.6 % (42.0-52.0); MEAN CORPUSCULAR HEMOGLOBIN 37.7 pg (27.0-33.0); MEAN CORPUSCULAR HGB CONC 34.2 g/dl (32.0-36.5); MEAN CORPUSCULAR VOLUME 110.2 fl (80.0-96.0); PLATELET COUNT, AUTOMATED 170 10^3/uL (150-450); RED BLOOD COUNT 3.05 10^6/uL (4.30-6.10); WHITE BLOOD COUNT 5.8 10^3/uL (4.0-10.0)
[2023-10-25 07:04] LABS: HEMOGLOBIN 11.5 g/dl (13.5-17.5)
[2023-10-25 07:35] LABS: BLOOD UREA NITROGEN 11 MG/DL (9-23); CALCIUM LEVEL 8.1 MG/DL (8.3-10.6); CARBON DIOXIDE LEVEL 26 MMOL/L (20-31); CHLORIDE LEVEL 110 MMOL/L (98-107); GLOMERULAR FILTRATION RATE > 60.0 (>42); GLUCOSE, FASTING 127 MG/DL (74-106); MAGNESIUM LEVEL 1.4 MG/DL (1.8-2.4); POTASSIUM SERUM 3.3 MMOL/L (3.5-5.1); SODIUM LEVEL 140 MMOL/L (136-145)
[2023-10-25] MEDS ORDERED: cefTRIAXone SOD 1 GM in D5W MINI-BAG PLUS 50 ML IV SCH (08:30)
[2023-10-25] MEDS: MAG SULF 1GM/100ML (MAG RUN) 1 GM in IV 1 EA IV SCH (09:17)
[2023-10-25 10:27] LABS: ALBUMIN 2.8 G/DL (3.2-5.2); ALKALINE PHOSPHATASE 79 U/L (46-116); ALT/SGPT < 9 U/L (7.0-40); AST/SGOT 10 U/L (<34); BILIRUBIN,TOTAL 0.3 MG/DL (0.3-1.2); BLOOD UREA NITROGEN 11 MG/DL (9-23); CALCIUM LEVEL 8.6 MG/DL (8.3-10.6); CARBON DIOXIDE LEVEL 28 MMOL/L (20-31); CHLORIDE LEVEL 109 MMOL/L (98-107); CREATININE FOR GFR 0.61 MG/DL (0.70-1.30); GLOMERULAR FILTRATION RATE > 60.0 (>42); GLUCOSE, FASTING 117 MG/DL (74-106); POTASSIUM SERUM 3.8 MMOL/L (3.5-5.1); SODIUM LEVEL 140 MMOL/L (136-145); TOTAL PROTEIN 5.7 G/DL (5.7-8.2)
[2023-10-25] MEDS ORDERED: KCL 10MEQ/100ML SWI (KRUN) 10 MEQ in IV 1 EA IV SCH (11:00)
[2023-10-25] MEDS: cefTRIAXone SOD 2 GM in D5W MINI-BAG PLUS 50 ML IV SCH (11:37)
[2023-10-25] MEDS: DOXYCYCLINE HYCLATE 100 MG in D5W MINI-BAG PLUS 100 ML IV SCH (12:13)
[2023-10-25 12:35] VITALS: BP 130/63; TEMP 97.6; O2SAT 98
[2023-10-25] MEDS: FLUBLOK(EGGFREE) TRIVAL(24-25) VACCINE PF 0.5ML SYRINGE 18YRS & OLDER IM.IMMUN ONE (17:12)
[2023-10-25] MEDS: NICOTINE 14 MG/24 HR TRANSDERMAL TD SCH (19:25)
[2023-10-25 20:07] VITALS: BP 144/63; TEMP 98.5; O2SAT 97
[2023-10-26] VITALS (7 sets, daily range): BP systolic 112–138; BP diastolic 56–69; TEMP 97.1–98.3; O2SAT 95–98
[2023-10-26 06:19] LABS: HEMATOCRIT 33.2 % (42.0-52.0); HEMOGLOBIN 11.1 g/dl (13.5-17.5); MEAN CORPUSCULAR HEMOGLOBIN 36.8 pg (27.0-33.0); MEAN CORPUSCULAR HGB CONC 33.4 g/dl (32.0-36.5); MEAN CORPUSCULAR VOLUME 109.9 fl (80.0-96.0); PLATELET COUNT, AUTOMATED 155 10^3/uL (150-450); RED BLOOD COUNT 3.02 10^6/uL (4.30-6.10); WHITE BLOOD COUNT 3.9 10^3/uL (4.0-10.0)
[2023-10-26 07:46] LABS: ALBUMIN 2.5 G/DL (3.2-5.2); ALKALINE PHOSPHATASE 71 U/L (46-116); ALT/SGPT < 9 U/L (7.0-40); AST/SGOT 10 U/L (<34); BILIRUBIN,TOTAL 0.3 MG/DL (0.3-1.2); BLOOD UREA NITROGEN 6 MG/DL (9-23); CALCIUM LEVEL 8.4 MG/DL (8.3-10.6); CARBON DIOXIDE LEVEL 28 MMOL/L (20-31); CHLORIDE LEVEL 108 MMOL/L (98-107); CREATININE FOR GFR 0.56 MG/DL (0.70-1.30); GLOMERULAR FILTRATION RATE > 60.0 (>42); GLUCOSE, FASTING 98 MG/DL (74-106); MAGNESIUM LEVEL 1.8 MG/DL (1.8-2.4); POTASSIUM SERUM 2.9 MMOL/L (3.5-5.1); SODIUM LEVEL 140 MMOL/L (136-145); TOTAL PROTEIN 5.1 G/DL (5.7-8.2)
[2023-10-26] MEDS: ENOXAPARIN 40MG/0.4ML SYRINGE (J1650 PER 10MG) SC SCH (08:08)
[2023-10-26] MEDS: PANTOPRAZOLE 40MG VIAL IV SCH (08:08)
[2023-10-26] MEDS: KCL 10MEQ/100ML SWI (KRUN) 10 MEQ in IV 1 EA IV SCH (12:39)
[2023-10-26] MEDS: ALBUTEROL SULFATE 2.5MG/0.5ML INH NEB SOLN NEB PRN (16:11)
[2023-10-26 19:10] LABS: BLOOD UREA NITROGEN 6 MG/DL (9-23); CARBON DIOXIDE LEVEL 27 MMOL/L (20-31); CHLORIDE LEVEL 110 MMOL/L (98-107); CREATININE FOR GFR 0.52 MG/DL (0.70-1.30); GLOMERULAR FILTRATION RATE > 60.0 (>42); GLUCOSE, FASTING 100 MG/DL (74-106); POTASSIUM SERUM 3.2 MMOL/L (3.5-5.1); SODIUM LEVEL 141 MMOL/L (136-145)
[2023-10-26] MEDS: KETOROLAC 30 MG/ML 1ML VIAL IV ONE (23:56)
[2023-10-27 04:57] VITALS: BP 105/54; TEMP 97.6; O2SAT 96
[2023-10-27 06:16] LABS: HEMATOCRIT 32.6 % (42.0-52.0); MEAN CORPUSCULAR HEMOGLOBIN 37.3 pg (27.0-33.0); MEAN CORPUSCULAR HGB CONC 33.7 g/dl (32.0-36.5); MEAN CORPUSCULAR VOLUME 110.5 fl (80.0-96.0); PLATELET COUNT, AUTOMATED 158 10^3/uL (150-450); RED BLOOD COUNT 2.95 10^6/uL (4.30-6.10); WHITE BLOOD COUNT 2.8 10^3/uL (4.0-10.0)
[2023-10-27 06:58] LABS: ALBUMIN 2.3 G/DL (3.2-5.2); ALKALINE PHOSPHATASE 67 U/L (46-116); ALT/SGPT < 9 U/L (7.0-40); AST/SGOT 11 U/L (<34); BILIRUBIN,TOTAL 0.3 MG/DL (0.3-1.2); BLOOD UREA NITROGEN 5 MG/DL (9-23); CALCIUM LEVEL 8.8 MG/DL (8.3-10.6); CARBON DIOXIDE LEVEL 28 MMOL/L (20-31); CHLORIDE LEVEL 111 MMOL/L (98-107); CREATININE FOR GFR 0.56 MG/DL (0.70-1.30); GLOMERULAR FILTRATION RATE > 60.0 (>42); GLUCOSE, FASTING 90 MG/DL (74-106); MAGNESIUM LEVEL 1.6 MG/DL (1.8-2.4); POTASSIUM SERUM 3.3 MMOL/L (3.5-5.1); SODIUM LEVEL 142 MMOL/L (136-145)
[2023-10-27 08:00] VITALS: BP 116/69; TEMP 97.5; O2SAT 98
[2023-10-27] MEDS: KCL 10MEQ/100ML SWI (KRUN) 10 MEQ in IV 1 EA IV SCH (09:48)
[2023-10-27] MEDS: KCL 20MEQ IN D5/0.45NS 1000ML 1,000 ML IV SCH (11:14)
[2023-10-27 12:00] VITALS: BP 116/70; TEMP 97.7; O2SAT 97
[2023-10-27] MEDS: KETOROLAC 30 MG/ML 1ML VIAL IV SCH (13:05)
[2023-10-27 16:00] VITALS: BP 120/70; TEMP 97.6; O2SAT 97
[2023-10-27] MEDS: MAG SULF 1GM/100ML (MAG RUN) 1 GM in IV 1 EA IV SCH (16:49)
[2023-10-27 19:49] VITALS: BP 127/59; TEMP 97.9; O2SAT 97
[2023-10-28 04:47] VITALS: BP 127/54; TEMP 97.2; O2SAT 97
[2023-10-28 06:29] LABS: MEAN CORPUSCULAR HEMOGLOBIN 36.2 pg (27.0-33.0); MEAN CORPUSCULAR HGB CONC 33.3 g/dl (32.0-36.5); MEAN CORPUSCULAR VOLUME 108.6 fl (80.0-96.0); PLATELET COUNT, AUTOMATED 149 10^3/uL (150-450); RED BLOOD COUNT 3.04 10^6/uL (4.30-6.10); WHITE BLOOD COUNT 2.9 10^3/uL (4.0-10.0)
[2023-10-28 06:52] LABS: ALBUMIN 2.3 G/DL (3.2-5.2); ALKALINE PHOSPHATASE 66 U/L (46-116); ALT/SGPT 10 U/L (7.0-40); AST/SGOT 11 U/L (<34); BILIRUBIN,TOTAL 0.3 MG/DL (0.3-1.2); BLOOD UREA NITROGEN < 5 MG/DL (9-23); CALCIUM LEVEL 8.6 MG/DL (8.3-10.6); CARBON DIOXIDE LEVEL 26 MMOL/L (20-31); CHLORIDE LEVEL 109 MMOL/L (98-107); CREATININE FOR GFR 0.52 MG/DL (0.70-1.30); GLOMERULAR FILTRATION RATE > 60.0 (>42); GLUCOSE, FASTING 100 MG/DL (74-106); MAGNESIUM LEVEL 1.9 MG/DL (1.8-2.4); POTASSIUM SERUM 3.6 MMOL/L (3.5-5.1); SODIUM LEVEL 140 MMOL/L (136-145); TOTAL PROTEIN 4.9 G/DL (5.7-8.2)
[2023-10-28 08:30] VITALS: BP 145/69; TEMP 97.5; O2SAT 98
[2023-10-28 12:34] VITALS: BP 158/81; TEMP 97.5; O2SAT 95
[2023-10-28] MEDS ORDERED: LIDOCAINE 2% 100MG/5ML SDV (FOR ANES.) As Ordered ONE (13:32)
[2023-10-28] MEDS ORDERED: propofoL 200 MG/20 ML VIAL As Ordered ONE (13:32)
[2023-10-28] MEDS ORDERED: ISOVUE-300 61% 100ML VIAL As Ordered ONE (13:46)
[2023-10-28] MEDS ORDERED: LIDOCAINE 1% MDV 20ML VIAL As Ordered ONE (13:46)
[2023-10-28] MEDS ORDERED: LIDOCAINE 2% JELLY 6ML SYRINGE As Ordered ONE (14:08)
[2023-10-28] MEDS ORDERED: ceFAZolin 2 GM/D5W 50 ML IV BAG As Ordered ONE (14:08)
[2023-10-28] MEDS ORDERED: fentaNYL 100 MCG/2 ML INJECTION As Ordered ONE (14:16)
[2023-10-28] MEDS ORDERED: GLUCAGON INJ 1MG VIAL As Ordered ONE (14:21)
[2023-10-28 16:30] VITALS: BP 135/62; TEMP 97.5; O2SAT 97
[2023-10-28 19:44] VITALS: BP 139/60; TEMP 97.7; O2SAT 98
[2023-10-29] VITALS: BP 128/65; TEMP 97.4; O2SAT 97
[2023-10-29 04:00] VITALS: BP 127/78; TEMP 97.7; O2SAT 100
[2023-10-29 06:32] LABS: HEMATOCRIT 35.5 % (42.0-52.0); HEMOGLOBIN 11.9 g/dl (13.5-17.5); MEAN CORPUSCULAR HEMOGLOBIN 36.4 pg (27.0-33.0); MEAN CORPUSCULAR HGB CONC 33.5 g/dl (32.0-36.5); MEAN CORPUSCULAR VOLUME 108.6 fl (80.0-96.0); PLATELET COUNT, AUTOMATED 163 10^3/uL (150-450); RED BLOOD COUNT 3.27 10^6/uL (4.30-6.10); WHITE BLOOD COUNT 4.2 10^3/uL (4.0-10.0)
[2023-10-29 07:05] LABS: ALBUMIN 2.5 G/DL (3.2-5.2); ALKALINE PHOSPHATASE 70 U/L (46-116); ALT/SGPT 11 U/L (7.0-40); AST/SGOT 17 U/L (<34); BILIRUBIN,TOTAL 0.3 MG/DL (0.3-1.2); BLOOD UREA NITROGEN < 5 MG/DL (9-23); CALCIUM LEVEL 9.1 MG/DL (8.3-10.6); CARBON DIOXIDE LEVEL 28 MMOL/L (20-31); CHLORIDE LEVEL 111 MMOL/L (98-107); CREATININE FOR GFR 0.53 MG/DL (0.70-1.30); GLOMERULAR FILTRATION RATE > 60.0 (>42); GLUCOSE, FASTING 91 MG/DL (74-106); MAGNESIUM LEVEL 1.7 MG/DL (1.8-2.4); POTASSIUM SERUM 3.9 MMOL/L (3.5-5.1); SODIUM LEVEL 141 MMOL/L (136-145); TOTAL PROTEIN 5.4 G/DL (5.7-8.2)
[2023-10-29 08:15] VITALS: BP 145/72; TEMP 97.3; O2SAT 100
[2023-10-29] MEDS: ASPIRIN 81MG CHEW TABLET GT SCH (10:14)
[2023-10-29] MEDS: SIMVASTATIN 40 MG TAB GT SCH (10:17)
[2023-10-29] MEDS: buPROPion 100 MG TAB GT SCH (10:17)
[2023-10-29] MEDS: OMEPRAZOLE/SODIUM BICARB 20-840MG 10ML ORAL SYRINGE PO SCH (11:53)
[2023-10-29 12:19] VITALS: BP 118/68; TEMP 97.3; O2SAT 99
[2023-10-29 16:00] VITALS: BP 126/69; TEMP 97.9; O2SAT 97
[2023-10-29] MEDS: PERCOCET 5MG/325MG TAB GT PRN (16:39)
[2023-10-29 21:19] VITALS: BP 124/68; TEMP 97.7; O2SAT 97
[2023-10-29] MEDS: CEFDINIR 300 MG CAP (OMNICEF) PO SCH (21:24)
[2023-10-29] MEDS: DOXYCYCLINE HYCLATE 100MG TABLET PO SCH (21:24)
[2023-10-30] VITALS (7 sets, daily range): BP systolic 103–116; BP diastolic 46–70; TEMP 97–98.1; O2SAT 92–99
[2023-10-30 06:54] LABS: HEMATOCRIT 34.6 % (42.0-52.0); HEMOGLOBIN 11.6 g/dl (13.5-17.5); MEAN CORPUSCULAR HEMOGLOBIN 36.5 pg (27.0-33.0); MEAN CORPUSCULAR HGB CONC 33.5 g/dl (32.0-36.5); MEAN CORPUSCULAR VOLUME 108.8 fl (80.0-96.0); PLATELET COUNT, AUTOMATED 160 10^3/uL (150-450); RED BLOOD COUNT 3.18 10^6/uL (4.30-6.10); WHITE BLOOD COUNT 3.7 10^3/uL (4.0-10.0)
[2023-10-30 07:14] LABS: ALBUMIN 2.2 G/DL (3.2-5.2); ALKALINE PHOSPHATASE 67 U/L (46-116); ALT/SGPT 10 U/L (7.0-40); AST/SGOT 13 U/L (<34); BILIRUBIN,TOTAL 0.3 MG/DL (0.3-1.2); BLOOD UREA NITROGEN < 5 MG/DL (9-23); CALCIUM LEVEL 8.4 MG/DL (8.3-10.6); CARBON DIOXIDE LEVEL 28 MMOL/L (20-31); CHLORIDE LEVEL 107 MMOL/L (98-107); CREATININE FOR GFR 0.52 MG/DL (0.70-1.30); GLOMERULAR FILTRATION RATE > 60.0 (>42); GLUCOSE, FASTING 117 MG/DL (74-106); MAGNESIUM LEVEL 1.5 MG/DL (1.8-2.4); POTASSIUM SERUM 3.9 MMOL/L (3.5-5.1); SODIUM LEVEL 140 MMOL/L (136-145); TOTAL PROTEIN 4.8 G/DL (5.7-8.2)
[2023-10-30] MEDS: IPRATROPIUM 0.5MG/ALBUTEROL 2.5MG INH SOL UD 3ML (DUONEB) NEB PRN (07:51)
[2023-10-30] MEDS: POTASSIUM CHLORIDE 10% LIQ 20MEQ/15ML UDC PO SCH (09:21)
[2023-10-30] MEDS: MAGNESIUM OXIDE 400MG TAB (MAG-OX) GT SCH (09:21)
[2023-10-30] MEDS: PERCOCET 5MG/325MG TAB GT PRN (09:23)
[2023-10-30] MEDS: MAG SULF 1GM/100ML (MAG RUN) 1 GM in IV 1 EA IV SCH (09:24)
[2023-10-30] MEDS ORDERED: BUPR-69 GT (19:22)
[2023-10-30] MEDS ORDERED: MAGN400T2 GT (19:22)
[2023-10-30] MEDS ORDERED: THERTAB52 GT (19:25)
[2023-10-30] MEDS ORDERED: LORA-622 GT (19:25)
[2023-10-30] MEDS ORDERED: ASPI81CH33 GT (19:25)
[2023-10-30] MEDS ORDERED: SIMV-254 GT (19:25)
[2023-10-30] MEDS ORDERED: OMEP40CA4 GT (19:25)
[2023-10-30] MEDS ORDERED: LISI20TA33 GT (19:25)
[2023-10-30] MEDS ORDERED: ATEN50TA2 GT (19:25)
[2023-10-30] MEDS ORDERED: DOXY-440 GT (19:29)
[2023-10-30] MEDS ORDERED: CEFD250S26 PO (19:29)
[2023-10-31 04:01] VITALS: BP 111/58; TEMP 97.2; O2SAT 90
[2023-10-31 07:58] LABS: HEMATOCRIT 34.9 % (42.0-52.0); HEMOGLOBIN 11.3 g/dl (13.5-17.5); MEAN CORPUSCULAR HEMOGLOBIN 36.3 pg (27.0-33.0); MEAN CORPUSCULAR HGB CONC 32.4 g/dl (32.0-36.5); MEAN CORPUSCULAR VOLUME 112.2 fl (80.0-96.0); PLATELET COUNT, AUTOMATED 156 10^3/uL (150-450); RED BLOOD COUNT 3.11 10^6/uL (4.30-6.10)
[2023-10-31 08:00] VITALS: BP 123/62; TEMP 97.9; O2SAT 98
[2023-10-31 08:45] LABS: ALBUMIN 2.4 G/DL (3.2-5.2); ALKALINE PHOSPHATASE 73 U/L (46-116); ALT/SGPT 15 U/L (7.0-40); AST/SGOT 14 U/L (<34); BILIRUBIN,TOTAL 0.3 MG/DL (0.3-1.2); BLOOD UREA NITROGEN 7 MG/DL (9-23); CALCIUM LEVEL 8.7 MG/DL (8.3-10.6); CARBON DIOXIDE LEVEL 30 MMOL/L (20-31); CHLORIDE LEVEL 107 MMOL/L (98-107); CREATININE FOR GFR 0.57 MG/DL (0.70-1.30); GLOMERULAR FILTRATION RATE > 60.0 (>42); GLUCOSE, FASTING 113 MG/DL (74-106); MAGNESIUM LEVEL 1.8 MG/DL (1.8-2.4); POTASSIUM SERUM 4.9 MMOL/L (3.5-5.1); SODIUM LEVEL 138 MMOL/L (136-145); TOTAL PROTEIN 5.2 G/DL (5.7-8.2)
[2023-10-31 09:59] VITALS: BP 129/64
[2023-11-04] MEDS ORDERED: OXYC1SOL3 PO (10:24)
== END 2023-10-31 18:20 | disposition home health service (06) | DRG 179 ==
LOC: M ED 07:26 → M ED INP 07:27 → M MS5PR 16:15 → OBSVTOIN 10-26 18:58
PROVIDERS: ADMIT Family Medicine; ATTEND Internal Medicine
PROC: 0DH67UZ Insertion of Feeding Device into Stomach, Via Natural or Artificial Opening (ICD-10-PCS; principal; 2023-10-28 13:00)
DX: J69.0 Pneumonitis due to inhalation of food and vomit (principal); I25.10 Atherosclerotic heart disease of native coronary artery without angina pectoris; I10 Essential (primary) hypertension; F17.200 Nicotine dependence, unspecified, uncomplicated; C32.0 Malignant neoplasm of glottis; R13.12 Dysphagia, oropharyngeal phase; E87.6 Hypokalemia; E83.42 Hypomagnesemia; F32.A Depression, unspecified; Z79.82 Long term (current) use of aspirin; Z79.899 Other long term (current) drug therapy; Z85.46 Personal history of malignant neoplasm of prostate

== ENCOUNTER → 2023-11-16 | Outpatient (CLI) | payer MEDICARE ==
[~2023-11-16] MED LIST changes: +ACET500P3 PO; +ALBU2.5V10 NEB; +ASPI81CH33 GT; +ATEN50TA2 GT; +BUPR-69 GT; +CEFD250S26 PO; -DOXY-323 PO; +DOXY-440 GT; +DOXY-441 PO; +LISI20TA33 GT; +LISI20TA33 PO; +LORA-622 GT; +LORA-622 PO; +MAGN400T2 GT; +OMEP40CA4 GT; +OXYC1SOL3 PO; +SIMV-254 GT; +THERTAB52 GT
== END ==
LOC: M RAD 07:28
PROVIDERS: ATTEND Internal Medicine Pulmonary Disease
DX: R91.8 Other nonspecific abnormal finding of lung field (principal)

== ENCOUNTER → 2023-11-30 | Outpatient (REF) | payer MEDICARE ==
[2023-11-30 14:22] LABS: BLOOD UREA NITROGEN 24 MG/DL (9-23); CALCIUM LEVEL 10.1 MG/DL (8.3-10.6); CARBON DIOXIDE LEVEL 26 MMOL/L (20-31); CHLORIDE LEVEL 110 MMOL/L (98-107); CREATININE FOR GFR 0.65 MG/DL (0.70-1.30); GLOMERULAR FILTRATION RATE > 60.0 (>42); GLUCOSE, FASTING 76 MG/DL (74-106); SODIUM LEVEL 142 MMOL/L (136-145)
== END ==
LOC: M LABDRWAD 13:20
PROVIDERS: ATTEND Family Medicine
DX: E87.8 Other disorders of electrolyte and fluid balance, not elsewhere classified (principal)

== ENCOUNTER → 2023-12-07 | Outpatient (CLI) | payer MEDICARE | LOC: M ONCR 08:47 | PROVIDERS: ATTEND General Practice | DX: C32.0 Malignant neoplasm of glottis (principal); R91.8 Other nonspecific abnormal finding of lung field; R07.0 Pain in throat; F17.210 Nicotine dependence, cigarettes, uncomplicated; Z92.3 Personal history of irradiation; Z93.1 Gastrostomy status; Z79.82 Long term (current) use of aspirin; Z79.899 Other long term (current) drug therapy | CPT/HCPCS: 31575; G0463 ==

== ENCOUNTER → 2023-12-22 | Outpatient (CLI) | payer MEDICARE | LOC: M PLAIMG 07:51 | PROVIDERS: ATTEND Internal Medicine Pulmonary Disease | DX: R91.8 Other nonspecific abnormal finding of lung field (principal) ==

== ENCOUNTER → 2023-12-26 | Outpatient (CLI) | payer MEDICARE ==
[~2023-12-26] MED LIST changes: +PRED50TA PO; +ZITH250T PO
== END ==
LOC: M PLARAD 08:58
PROVIDERS: ATTEND General Practice
DX: C34.11 Malignant neoplasm of upper lobe, right bronchus or lung (principal)
CPT/HCPCS: 78815; A9552

== ENCOUNTER 2024-01-04 06:13 | Day surgery (SDC) | payer MEDICARE ==
[~2024-01-04] VITALS: Ht 177.8 cm; Wt 73.1 kg
[~2024-01-04 06:13] MED LIST changes: +AZIT1PAC2 GT; +VARE1TAB7 PO
[2024-01-04] MEDS ORDERED: propofoL 200 MG/20 ML VIAL As Ordered ONE (06:59)
[2024-01-04] MEDS ORDERED: SUGAMMADEX SODIUM 500 MG/5 ML VIAL (BRIDION) As Ordered ONE (06:59)
[2024-01-04] MEDS ORDERED: ACETAMINOPHEN 1000MG/100ML IV BAG As Ordered ONE (06:59)
[2024-01-04] MEDS ORDERED: LIDOCAINE 2% 100MG/5ML SDV (FOR ANES.) As Ordered ONE (06:59)
[2024-01-04] MEDS ORDERED: ONDANSETRON 4MG 2ML VIAL As Ordered ONE (06:59)
[2024-01-04] MEDS ORDERED: dexmedeTOMIDine (4MCG/ML)200MCG/50ML BTL (PRECEDEX) As Ordered ONE (06:59)
[2024-01-04] MEDS ORDERED: ROCURONIUM BROMIDE 50MG/5ML VIAL As Ordered ONE (06:59)
[2024-01-04] MEDS ORDERED: fentaNYL 100 MCG/2 ML INJECTION As Ordered ONE (07:03)
[2024-01-04] MEDS ORDERED: GLYCOPYRROLATE INJ 0.2 MG/ML 2 ML VIAL As Ordered ONE (07:13)
[2024-01-04] MEDS: LIDOCAINE PRES-FREE 2% 10ML AMP INH ONE (07:16)
[2024-01-04] MEDS: ALBUTEROL SULFATE 2.5MG/0.5ML INH NEB SOLN INH ONE (07:16)
[2024-01-04] MEDS: CETACAINE SPRAY 5GM As Ordered ONE (08:05)
[2024-01-04] MEDS: EPINEPHrine 1MG/10ML SYRINGE 1.5IN As Ordered ONE (08:05)
[2024-01-04] MEDS: THROMBIN 5,000 UNITS VIAL As Ordered ONE (09:30)
[2024-01-04] MEDS ORDERED: ONDANSETRON 4MG 2ML VIAL IV PRN (10:00)
[2024-01-04] MEDS ORDERED: NS 1,000 ML IV SCH (10:00)
[2024-01-04] MEDS ORDERED: oxyCODONE 5MG TAB PO PRN (10:00)
[2024-01-04] MEDS: fentaNYL 100 MCG/2 ML INJECTION IV PRN (10:12)
[2024-01-04] MEDS: HYDROMORPHONE HCL 0.5 MG/ 0.5 ML SYRINGE IV PRN (10:21)
[2024-01-04 11:10] VITALS: BP 154/72; TEMP 97.3; O2SAT 97
== END 2024-01-04 11:14 | disposition home or self-care (01) ==
LOC: M SDC 06:13
PROVIDERS: ATTEND Internal Medicine Pulmonary Disease
DX: C77.1 Secondary and unspecified malignant neoplasm of intrathoracic lymph nodes (principal); J84.10 Pulmonary fibrosis, unspecified; J84.111 Idiopathic interstitial pneumonia, not otherwise specified; I25.10 Atherosclerotic heart disease of native coronary artery without angina pectoris; Z95.5 Presence of coronary angioplasty implant and graft; J00 Acute nasopharyngitis [common cold]; F17.210 Nicotine dependence, cigarettes, uncomplicated; Z79.899 Other long term (current) drug therapy
CPT/HCPCS: 31627; 31628; 31632; 31652; 31654; 71045; 76000; 87070; 87077; 87102; 87116; 87186; 87205; 87206; 88173; 88305; C1601; J0131; J0171; J1100; J1171; J1596; J2405; J3010

== ENCOUNTER 2024-01-06 09:56 | Emergency (ER) | payer MEDICARE ==
[~2024-01-06] VITALS: Ht 180.3 cm; Wt 73.0 kg
[2024-01-06 10:58] LABS: VENOUS BASE EXCESS 4.5 (-2.0-2.0); VENOUS HCO3 30.5 MMOL/L (23.0-27.0); VENOUS O2 SATURATION 50.1 % (60.0-80.0); VENOUS PARTIAL PRESSURE O2 26.8 mmHg (30.0-50.0); VENOUS PH 7.395 UNITS (7.330-7.430); VENOUS STANDARD HCO3 27.3 MMOL/L; VENOUS TOTAL CO2 32.1 MMOL/L (24.0-28.0)
[2024-01-06 11:05] LABS: BASO % 0.1 % (0.0-1.0); EOS % 0.1 % (0.0-3.0); HEMATOCRIT 38.1 % (42.0-52.0); HEMOGLOBIN 12.4 g/dl (13.5-17.5); LYMPH % 12.6 % (24.0-44.0); MEAN CORPUSCULAR HEMOGLOBIN 34.5 pg (27.0-33.0); MEAN CORPUSCULAR HGB CONC 32.5 g/dl (32.0-36.5); MEAN CORPUSCULAR VOLUME 106.1 fl (80.0-96.0); MONO # 0.9 10^3/uL (0.0-0.8); MONO % 11.2 % (2.0-8.0); NEUTROPHILS # 5.7 10^3/uL (1.5-8.5); NEUTROPHILS % 75.7 % (36.0-66.0); PLATELET COUNT, AUTOMATED 259 10^3/uL (150-450); RED BLOOD COUNT 3.59 10^6/uL (4.30-6.10); WHITE BLOOD COUNT 7.6 10^3/uL (4.0-10.0)
[2024-01-06 11:36] LABS: ALBUMIN 2.9 G/DL (3.2-5.2); ALKALINE PHOSPHATASE 76 U/L (40-129); ALT/SGPT 13 U/L (7.0-40); AST/SGOT 11 U/L (<34); BILIRUBIN,DIRECT 0.1 MG/DL (<0.4); BILIRUBIN,TOTAL 0.3 MG/DL (0.3-1.2); BLOOD UREA NITROGEN 13 MG/DL (9-23); CALCIUM LEVEL 9.8 MG/DL (8.3-10.6); CARBON DIOXIDE LEVEL 32 MMOL/L (20-31); CHLORIDE LEVEL 103 MMOL/L (98-107); CREATININE FOR GFR 0.61 MG/DL (0.70-1.30); GLOMERULAR FILTRATION RATE > 60.0 (>42); GLUCOSE, FASTING 95 MG/DL (74-106); POTASSIUM SERUM 3.8 MMOL/L (3.5-5.1); SODIUM LEVEL 140 MMOL/L (136-145); TOTAL PROTEIN 6.3 G/DL (5.7-8.2)
[2024-01-06] MEDS: IPRATROPIUM 0.5MG/ALBUTEROL 2.5MG INH SOL UD 3ML (DUONEB) NEB SCH (11:53)
[2024-01-06] MEDS: methylPREDNISolone 125MG 2ML VIAL IV ONE (12:04)
[2024-01-06] MEDS ORDERED: ISOVUE-370 76% 100ML VIAL As Ordered ONE (12:27)
[2024-01-06] MEDS ORDERED: PRED10TA2 PO (13:15)
[2024-01-06] MEDS ORDERED: DOXY100C82 PO (13:16)
[2024-01-06] MEDS ORDERED: CEFD300C PO (13:16)
[2024-01-06 13:32] VITALS: BP 168/78; TEMP 96; O2SAT 98
== END 2024-01-06 13:41 | disposition home or self-care (01) ==
LOC: M ED 09:56
DX: J20.9 Acute bronchitis, unspecified (principal); I25.119 Atherosclerotic heart disease of native coronary artery with unspecified angina pectoris; I10 Essential (primary) hypertension; E78.5 Hyperlipidemia, unspecified; Z85.21 Personal history of malignant neoplasm of larynx; Z85.46 Personal history of malignant neoplasm of prostate; F17.210 Nicotine dependence, cigarettes, uncomplicated; F10.10 Alcohol abuse, uncomplicated; Z79.51 Long term (current) use of inhaled steroids; Z79.1 Long term (current) use of non-steroidal anti-inflammatories (NSAID); Z79.2 Long term (current) use of antibiotics; Z79.52 Long term (current) use of systemic steroids; Z79.810 Long term (current) use of selective estrogen receptor modulators (SERMs); Z79.899 Other long term (current) drug therapy
CPT/HCPCS: 70491; 71045; 71275; 80048; 80076; 82803; 83605; 85025; 87040; 87486; 87581; 87633; 87798; 93005; 93041; 94640; 94760; 96374; 99285; J2919; Q9967

== ENCOUNTER → 2024-01-17 | Outpatient (CLI) | payer MEDICARE ==
[~2024-01-17] MED LIST changes: +CEFD300C PO; +DOXY100C82 PO; +LEVO1TAB39 PO; +ONDA-284 PO; +POTA20LI16 PO; +PRED10TA2 PO; +PROC10TA5 PO
[2024-01-17 08:33] LABS: BASO % 0.1 % (0.0-1.0); EOS % 0.1 % (0.0-3.0); HEMATOCRIT 35.7 % (42.0-52.0); HEMOGLOBIN 11.9 g/dl (13.5-17.5); LYMPH % 12.1 % (24.0-44.0); MEAN CORPUSCULAR HEMOGLOBIN 34.8 pg (27.0-33.0); MEAN CORPUSCULAR HGB CONC 33.3 g/dl (32.0-36.5); MEAN CORPUSCULAR VOLUME 104.4 fl (80.0-96.0); MONO # 0.6 10^3/uL (0.0-0.8); MONO % 7.2 % (2.0-8.0); NEUTROPHILS # 6.7 10^3/uL (1.5-8.5); NEUTROPHILS % 80.1 % (36.0-66.0); PLATELET COUNT, AUTOMATED 191 10^3/uL (150-450); RED BLOOD COUNT 3.42 10^6/uL (4.30-6.10); WHITE BLOOD COUNT 8.3 10^3/uL (4.0-10.0)
[2024-01-17 09:15] LABS: INR 0.9; PROTHROMBIN TIME 12.5 SECONDS (12.5-14.5)
[2024-01-17 09:17] LABS: ALBUMIN 2.7 G/DL (3.2-5.2); ALKALINE PHOSPHATASE 63 U/L (40-129); ALT/SGPT 15 U/L (7.0-40); AST/SGOT 14 U/L (<34); BILIRUBIN,TOTAL 0.3 MG/DL (0.3-1.2); BLOOD UREA NITROGEN 12 MG/DL (9-23); CALCIUM LEVEL 9.2 MG/DL (8.3-10.6); CARBON DIOXIDE LEVEL 33 MMOL/L (20-31); CHLORIDE LEVEL 101 MMOL/L (98-107); CREATININE FOR GFR 0.61 MG/DL (0.70-1.30); GLOMERULAR FILTRATION RATE > 60.0 (>42); GLUCOSE, FASTING 97 MG/DL (74-106); POTASSIUM SERUM 2.9 MMOL/L (3.5-5.1); SODIUM LEVEL 142 MMOL/L (136-145); TOTAL PROTEIN 5.6 G/DL (5.7-8.2)
== END ==
LOC: M ONCR 08:04
PROVIDERS: ATTEND General Practice
DX: C34.11 Malignant neoplasm of upper lobe, right bronchus or lung (principal); C32.0 Malignant neoplasm of glottis; F17.210 Nicotine dependence, cigarettes, uncomplicated; Z92.3 Personal history of irradiation; Z93.1 Gastrostomy status; Z79.82 Long term (current) use of aspirin; Z79.899 Other long term (current) drug therapy
CPT/HCPCS: 36415; 80053; 85025; 85610; 85730; G0463

== ENCOUNTER → 2024-01-24 | Outpatient (CLI) | payer MEDICARE ==
[~2024-01-24] MED LIST changes: -LEVO1TAB39 PO
== END ==
LOC: M ONCR 08:04
PROVIDERS: ATTEND General Practice
DX: C32.0 Malignant neoplasm of glottis (principal); Z79.891 Long term (current) use of opiate analgesic

== ENCOUNTER → 2024-03-01 | Outpatient (CLI) | payer MEDICARE ==
[~2024-03-01] VITALS: Ht 177.8 cm; Wt 69.5 kg
[~2024-03-01] MED LIST changes: +LEVO1TAB39 PO
[2024-03-01 13:18] VITALS: BP 117/65; O2SAT 98
== END ==
LOC: M PAL 12:58
PROVIDERS: ATTEND Family Medicine
DX: Z51.5 Encounter for palliative care (principal); C32.0 Malignant neoplasm of glottis; Z93.1 Gastrostomy status; R91.8 Other nonspecific abnormal finding of lung field; Z66 Do not resuscitate; Z79.82 Long term (current) use of aspirin; Z79.52 Long term (current) use of systemic steroids; Z79.899 Other long term (current) drug therapy